=== PATIENT | male | born 1990 | race Caucasian/White ===

== ENCOUNTER 2017-02-25 11:24 | Emergency (ER) | payer MEDICAID ==
[2017-02-25 11:38] VITALS: TEMP 97.5
[2017-02-25] MEDS ORDERED: NS 1,000 ML IV ONE (11:52)
[2017-02-25] MEDS ORDERED: LORazepam 2 MG/ML INJ IVP ONE (11:59)
[2017-02-25] MEDS ORDERED: KETOROLAC 30 MG/1 ML SDV IVP ONE (11:59)
--- NOTE | 2017-02-25 12:00 | EDPHY ---
H & P Stated Complaint: l flank plain/dysuria/ penis is sore Time Seen by Provider: 02/25/17 11:54 HPI/ROS: CHIEF COMPLAINT: Left flank pain HISTORY OF PRESENT ILLNESS: 26-year-old male complaining of acute left flank pain, described as sharp stabbing, intermittent for the past this 24 hours. No nausea or vomiting. States that he believed urinated a small pebble. No trauma. No testicle pain. No dysuria no hematuria increased frequency.Atraumatic. No urinary complaints REVIEW OF SYSTEMS: A ten point review of systems was performed and is negative with the exception of the items mentioned in the HPI PAST MEDICAL & SURGICAL HISTORY: No pertinent medical or surgical history SOCIAL HISTORY: on methadone therapy PHYSICAL EXAM (Prior to examination, patient consented to physical exam, hands were washed and my usual and customary physical exam procedures followed) 1) GENERAL: Well-developed, well-nourished, alert and oriented. Appears uncomfortable. 2) HEAD: Normocephalic, atraumatic 3) HEENT: Pupils equal, round, reactive to light bilaterally. Sclera anicteric. 4) NECK: Full range of motion, no meningeal signs. 5) LUNGS: Clear auscultation bilaterally, no wheezes, no rhonchi, no retractions. 6) HEART: Regular rate and rhythm, no murmur, no heave, no gallop. 7) ABDOMEN: No guarding, no rebound, no focal tenderness, negative McBurney's, negative Paez's, negative Rovsing's, negative peritoneal sign, 8) MUSCULOSKELETAL: Moving all extremities, no focal areas of tenderness, no obvious trauma. No peripheral edema or discoloration. 9) BACK: No CVA tenderness, no midline vertebral tenderness, no fluctuance, no step-off, no obvious trauma, no visual or palpable abnormality. 10) SKIN: No rash, no petechiae. 11) : Normal male external genitalia bilateral testicles nontender nonswollen , cremasteric reflex present, no urethral discharge, no signs of infection or Power's gangrene . 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 PSH: hernia, femur, elbowm throat - Social History Smoking Status: Current every day smoker Constitutional: Initial Vital Signs Temperature (C) 36.4 C 02/25/17 11:36 Heart Rate 73 02/25/17 11:36 Respiratory Rate 18 02/25/17 11:36 Blood Pressure 116/77 02/25/17 11:36 O2 Sat (%) 95 02/25/17 11:36 O2 Delivery Mode Room Air Allergies/Adverse Reactions: No Known Allergies Allergy (Verified 02/25/17 11:35) Home Medications: Medication Instructions Recorded NK [No Known Home Meds] 02/25/17 Medical Decision Making ED Course/Re-evaluation: 1:37 pm: Revaluation, sleeping, appears comfortable. 1:49 pm: Patient, sleeping, easily woken, states that he is pain free. Re- examined. Resting comfortably. Discussed his imaging results. I think the patient can be discharged home. We discussed possibility of a passed kidney stone. Doubt acute surgical abdominal pathology. Doubt acute genitalia surgical pathology. Plan will be discharge home. Care and management in consultation with secondary supervising physician Dr Plasencia - Data Points Laboratory Results: Laboratory Results 02/25/17 12:00 02/25/17 12:00 02/25/17 02/25/17 02/25/17 12:00 12:00 12:00 WBC 5.26 10^3/uL 10^3/uL (3.80-9.50) RBC 5.35 10^6/uL 10^6/uL (4.40-6.38) Hgb 15.2 g/dL g/dL (13.7-17.5) Hct 44.7 % % (40.0-51.0) MCV 83.6 fL fL (81.5-99.8) MCH 28.4 pg pg (27.9-34.1) MCHC 34.0 g/dL g/dL (32.4-36.7) RDW 12.9 % % (11.5-15.2) Plt Count 253 10^3/uL 10^3/uL (150-400) MPV 8.7 fL fL (8.7-11.7) Neut % (Auto) 47.7 % % (39.3-74.2) Lymph % (Auto) 43.3 % % (15.0-45.0) [place] % (Auto) 7.4 % % (4.5-13.0) Eos % (Auto) 1.0 % % (0.6-7.6) Baso % (Auto) 0.4 % % (0.3-1.7) Nucleat RBC Rel Count 0.0 % % (0.0-0.2) Absolute Neuts (auto) 2.51 10^3/uL 10^3/uL (1.70-6.50) Absolute Lymphs (auto) 2.28 10^3/uL 10^3/uL (1.00-3.00) Absolute Monos (auto) 0.39 10^3/uL 10^3/uL (0.30-0.80) Absolute Eos (auto) 0.05 10^3/uL 10^3/uL (0.03-0.40) Absolute Basos (auto) 0.02 10^3/uL 10^3/uL (0.02-0.10) Absolute Nucleated RBC 0.00 10^3/uL 10^3/uL (0-0.01) Immature Gran % 0.2 % % (0.0-1.1) Immature Gran # 0.01 10^3/uL 10^3/uL (0.00-0.10) Sodium 141 mEq/L mEq/L (134-144) Potassium 4.2 mEq/L mEq/L (3.5-5.2) Chloride 103 mEq/L mEq/L (97-110) Carbon Dioxide 27 mEq/l mEq/l (22-31) Anion Gap 11 mEq/L mEq/L (8-16) BUN 12 mg/dL mg/dL (7-23) Creatinine 0.9 mg/dL mg/dL (0.7-1.3) Estimated GFR > 60 Glucose 77 mg/dL mg/dL (70-100) Calcium 9.6 mg/dL mg/dL (8.5-10.4) Total Bilirubin 0.7 mg/dL mg/dL (0.1-1.4) Conjugated Bilirubin 0.4 mg/dL mg/dL (0.0-0.5) Unconjugated Bilirubin 0.3 mg/dL mg/dL (0.0-1.1) AST 18 IU/L IU/L (17-59) ALT 26 IU/L IU/L (21-72) Alkaline Phosphatase 69 IU/L IU/L (38-126) Total Protein 7.4 g/dL g/dL (6.3-8.2) Albumin 4.6 g/dL g/dL (3.5-5.0) Lipase 58.0 IU/L IU/L (23-300) Urine Color YELLOW Urine Appearance CLEAR Urine pH 5.0 (5.0-7.5) Ur Specific [place] 1.011 (1.002-1.030) Urine Protein NEGATIVE (NEGATIVE) Urine Ketones NEGATIVE (NEGATIVE) Urine Blood NEGATIVE (NEGATIVE) Urine Nitrate NEGATIVE (NEGATIVE) Urine Bilirubin NEGATIVE (NEGATIVE) Urine Urobilinogen NEGATIVE EU EU (0.2-1.0) Ur Leukocyte Esterase NEGATIVE (NEGATIVE) Urine RBC 5-10 /hpf H /hpf (0-3) Urine WBC 1-3 /hpf /hpf (0-3) Ur Epithelial Cells TRACE /lpf /lpf (NONE-1+) Urine Glucose NEGATIVE (NEGATIVE) Medications Given: Discontinued Medications Sodium Chloride (Ns) 1,000 mls @ 0 mls/hr IV ONCE ONE PRN Reason: Wide Open Stop: 02/25/17 11:53 Last Admin: 02/25/17 12:28 Dose: 1,000 mls Ketorolac Tromethamine (Toradol) 30 mg IVP EDNOW ONE Stop: 02/25/17 12:00 Last Admin: 02/25/17 12:26 Dose: 30 mg Lorazepam (Ativan Injection) 1 mg IVP EDNOW ONE Stop: 02/25/17 12:00 Last Admin: 02/25/17 12:26 Dose: 1 mg Departure - Departure Disposition: Home, Routine, Self-Care Clinical Impression: Flank pain Condition: Good Instructions: Flank Pain (ED) Additional Instructions: Return to the ER if you develop new or worsening symptoms, if you develop testicle pain, or any other symptoms concern you. Referrals: Irving Bateman MD [Medical Doctor] - 2-3 days without fail (Dr Bateman is a urologist)
[2017-02-25 12:10] LABS: % IMMATURE GRANULYOCYTES 0.2 % (0.0-1.1); ABSOLUTE IMMATURE GRANULOCYTES 0.01 10^3/uL (0.00-0.10); ADD DIFF? NO; ADD MORPH? NO; ADD SCAN? NO; ATYPICAL LYMPHOCYTE FLAG 20 (0-99); FRAGMENT RBC FLAG 0 (0-99); HEMATOCRIT 44.7 % (40.0-51.0); HEMOGLOBIN 15.2 g/dL (13.7-17.5); LEFT SHIFT FLG 0 (0-99); LIPEMIA HEMOLYSIS FLAG 90 (0-99); MEAN CELL HEMOGLOBIN 28.4 pg (27.9-34.1); MEAN CELL VOLUME 83.6 fL (81.5-99.8); MEAN PLATELET VOLUME 8.7 fL (8.7-11.7); PLATELET CLUMPS FLAG 0 (0-99); PLATELET COUNT 253 10^3/uL (150-400); RED BLOOD CELL COUNT 5.35 10^6/uL (4.40-6.38); RED CELL DISTRIBUTION WIDTH 12.9 % (11.5-15.2)
[2017-02-25 12:17] LABS: COLOR YELLOW; LEUKOCYTE ESTERASE,URINE NEGATIVE (NEGATIVE); NITRITE,URINE NEGATIVE (NEGATIVE)
[2017-02-25 12:30] LABS: ALANINE AMINOTRANSFERASE 26 IU/L (21-72); ALBUMIN 4.6 g/dL (3.5-5.0); ALKALINE PHOSPHATASE 69 IU/L (38-126); ANION GAP 11 mEq/L (8-16); ASPARTATE AMINOTRANSFERASE 18 IU/L (17-59); BILIRUBIN,TOTAL 0.7 mg/dL (0.1-1.4); BILIRUBIN-CONJUGATED 0.4 mg/dL (0.0-0.5); BILIRUBIN-UNCONJUGATED 0.3 mg/dL (0.0-1.1); CALCIUM 9.6 mg/dL (8.5-10.4); CARBON DIOXIDE 27 mEq/l (22-31); CHLORIDE 103 mEq/L (97-110); CREATININE 0.9 mg/dL (0.7-1.3); GLOMERULAR FILTRATION RATE > 60; GLUCOSE 77 mg/dL (70-100); POTASSIUM 4.2 mEq/L (3.5-5.2); SODIUM 141 mEq/L (134-144); TOTAL PROTEIN 7.4 g/dL (6.3-8.2)
[2017-02-25 14:06] VITALS: BP 98/50; PULSE 64; RESP 14; O2SAT 97
== END 2017-02-25 14:05 | disposition home or self-care (01) ==
DX: R10.9 Unspecified abdominal pain (principal); F17.200 Nicotine dependence, unspecified, uncomplicated
CPT/HCPCS: 96374; J1885; J2060

== ENCOUNTER 2017-03-01 00:09 | Inpatient (IN) | payer MEDICAID ==
[2017-03-01 00:45] LABS: % IMMATURE GRANULYOCYTES 0.4 % (0.0-1.1); ABSOLUTE IMMATURE GRANULOCYTES 0.02 10^3/uL (0.00-0.10); ADD DIFF? NO; ADD MORPH? NO; ADD SCAN? NO; ATYPICAL LYMPHOCYTE FLAG 40 (0-99); FRAGMENT RBC FLAG 0 (0-99); HEMATOCRIT 44.8 % (40.0-51.0); HEMOGLOBIN 15.2 g/dL (13.7-17.5); LEFT SHIFT FLG 0 (0-99); LIPEMIA HEMOLYSIS FLAG 90 (0-99); MEAN CELL HEMOGLOBIN 27.8 pg (27.9-34.1); MEAN CELL HEMOGLOBIN CONCENTR. 33.9 g/dL (32.4-36.7); MEAN CELL VOLUME 81.9 fL (81.5-99.8); MEAN PLATELET VOLUME 8.5 fL (8.7-11.7); PLATELET CLUMPS FLAG 10 (0-99); PLATELET COUNT 246 10^3/uL (150-400); RED BLOOD CELL COUNT 5.47 10^6/uL (4.40-6.38); RED CELL DISTRIBUTION WIDTH 12.8 % (11.5-15.2)
[2017-03-01 01:04] LABS: ANION GAP 13 mEq/L (8-16); CALCIUM 9.6 mg/dL (8.5-10.4); CARBON DIOXIDE 28 mEq/l (22-31); CHLORIDE 105 mEq/L (97-110); ETHANOL SERUM < 10 mg/dL (0-10); GLOMERULAR FILTRATION RATE > 60; GLUCOSE 78 mg/dL (70-100); POTASSIUM 3.9 mEq/L (3.5-5.2); SODIUM 146 mEq/L (134-144)
--- NOTE | 2017-03-01 02:31 | EDPHY ---
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 PSH: hernia, femur, elbowm throat - Social History Smoking Status: Current every day smoker Time Seen by Provider: 03/01/17 01:23 HPI/ROS: Chief Complaint: Hallucinations HPI: 26-year-old male has been having increasingly worsening visual and auditory hallucinations. Patient states he has been hallucinations for several years but has been getting increasingly worse. He is feeling paranoid. He was seen at [facility] and placed on a hold and sent for medical clearance. Patient states he has used cocaine in the past but has not used for 2 weeks. Symptoms been getting worse the last 2 weeks. Has not been seen for these in the past. Denies any other drug use. No alcohol. Is not feeling actively suicidal at this time. Patient is complaining of some mild testicular pain at this time. This has been present for the last for 5 days. Denies trauma. No fevers or chills. ROS: 10 point Review of Systems is negative except as noted in the HPI. PMH: None Medications: None Allergies no known drug allergies Social History: No smoking, occasional alcohol, occasional cocaine Family History: non-contributory Physical Exam: Gen: Awake, Alert, No Distress HEENT: Nose: no rhinorrhea Eyes: PERRLA, EOMI Mouth: Moist mucosa Neck: Supple, no JVD Chest: nontender, lungs clear to auscultation Heart: S1, S2 normal, no murmur Abd: Soft, non-tender, no guarding Genital exam: He has normal testicular lie. There is no erythema, there is no swelling, is normal cremasteric, mild bilateral testicular tenderness, no genital lesions Back: no CVA tenderness, no midline tenderness Ext: no edema, non-tender Skin: no rash Neuro: CN II-XII intact, Sensation grossly intact, Strength 5/5 in bilateral upper and lower extremities (Salomón Norris) Constitutional: Initial Vital Signs Temperature (C) 36.8 C 03/01/17 00:10 Heart Rate 78 03/01/17 00:10 Respiratory Rate 18 03/01/17 00:10 Blood Pressure 136/93 H 03/01/17 00:10 O2 Sat (%) 98 03/01/17 00:10 O2 Delivery Mode Room Air O2 (L/minute) 95 Allergies/Adverse Reactions: strawberry Allergy (Verified 03/01/17 00:40) clorox Allergy (Uncoded 03/01/17 00:40) Home Medications: Medication Instructions Recorded Methadone HCl 03/01/17 Medical Decision Making ED Course/Re-evaluation: 2328: Patient signed over to Dr. Miles at 11:00 p.m. shift change. Patient M1 hold still pending placement. (Minesh Jane) Patient here for medical clearance. He has some mild testicular discomfort but a normal exam. No evidence of acute infectious process at this time or torsion. Patient's U tox is negative. He he is medically cleared at this time. Patient is agitated and hallucinating. He is pending placement. Given Zyprexa 10 mg p.o. 0700 patient is improved and resting. No further issues. Patient is signed out to Dr. South pending placement. 2300 Care reassumed by me from Dr Jane pending placement. [address] Plasencia pending placement. No issues with this patient during my care overnight. (Salomón Norris) Other Provider: I assumed care of the patient at 0700 awaiting psychiatric placement The patient is turned over to Dr. Jane at 3pm pending psychiatric placement. (Saroj South) - Data Points Laboratory Results: Laboratory Results 03/01/17 00:30 03/01/17 00:30 Medications Given: Discontinued Medications Lorazepam (Ativan) 1 mg PO EDNOW ONE Stop: 03/02/17 00:46 Last Admin: 03/02/17 00:45 Dose: 1 mg Methadone HCl (Methadone Hcl) 40 mg PO EDNOW ONE Stop: 03/01/17 18:31 Last Admin: 03/01/17 18:38 Dose: 40 mg Olanzapine (Olanzapine) 10 mg PO EDNOW ONE Stop: 03/01/17 04:51 Last Admin: 03/01/17 04:57 Dose: 10 mg Departure - Departure Disposition: Other Psych, Not [facility] Clinical Impression: Acute psychosis Condition: Fair Referrals: Perla Duran [Primary Care Provider] - As per Instructions
[2017-03-01] MEDS ORDERED: OLANZapine 10 MG TAB PO ONE (04:50)
[2017-03-01] MEDS ORDERED: OLANZapine 5 MG TAB ONE (04:53)
[2017-03-01] MEDS ORDERED: IBUPROFEN 600 MG TAB PO ONE (05:09)
[2017-03-01 05:39] LABS: COLOR YELLOW; LEUKOCYTE ESTERASE,URINE NEGATIVE (NEGATIVE); NITRITE,URINE NEGATIVE (NEGATIVE)
[2017-03-01] MEDS ORDERED: METHADONE HCL 1 MG/ML SYR PO ONE (18:14)
[2017-03-01] MEDS ORDERED: METHADONE HCL 10 MG TAB PO ONE (18:30)
[2017-03-02] MEDS ORDERED: LORazepam 1 MG TAB ONE (00:44)
[2017-03-02] MEDS ORDERED: LORazepam 1 MG TAB PO ONE (00:45)
[2017-03-02] MEDS ORDERED: METHADONE HCL 5 MG TAB PO ONE (08:17)
[2017-03-02] MEDS ORDERED: METHADONE HCL 10 MG/ML 1000 ML BULK BOTTLE PO ONE (08:45)
[2017-03-02] MEDS ORDERED: IBUPROFEN 200 MG TAB PO ONE (10:51)
[2017-03-02] MEDS ORDERED: NICOTINE 21 MG/24 HR PATCH TD ONE ×2 (11:55→12:08)
[2017-03-02] MEDS ORDERED: MAGNESIUM HYDROXIDE 30 ML UDCUP PO PRN (17:41)
[2017-03-02] MEDS ORDERED: MAG HYDROX/AL HYDROX/SIMETH 30 ML UDCUP PO PRN (17:41)
[2017-03-02] MEDS: NICOTINE POLACRILEX 2 MG GUM B PRN ×3 (18:06→22:15)
[2017-03-02] MEDS: LORazepam 0.5 MG TAB PO PRN ×2 (18:06→22:05)
[2017-03-03] MEDS: NICOTINE POLACRILEX 2 MG GUM B PRN ×9 (00:43→23:27)
[2017-03-03] MEDS: LORazepam 0.5 MG TAB PO PRN ×5 (02:05→20:45)
[2017-03-03] MEDS ORDERED: METHADONE HCL 1 MG/ML 500ML BULK BOTTLE PO SCH ×2 (06:00→09:00)
[2017-03-03] MEDS: Lisdexamfetamine Dimesylate [Vyvanse] 60 MG PO SCH (09:25)
[2017-03-03] MEDS: CEPACOL LOZENGE PO PRN ×2 (12:11→13:11)
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
[2017-03-03] MEDS: NICOTINE 21 MG/24 HR PATCH TD SCH (16:35)
[2017-03-03] MEDS: ACETAMINOPHEN 325 MG TAB PO PRN (17:43)
[2017-03-03] MEDS ORDERED: risperiDONE 1 MG TAB PO SCH (22:15)
[2017-03-04] MEDS: NICOTINE POLACRILEX 2 MG GUM B PRN ×2 (00:37→23:36)
[2017-03-04] MEDS: LORazepam 0.5 MG TAB PO PRN ×5 (00:37→21:58)
[2017-03-04] MEDS: METHADONE HCL 10 MG/ML 1000 ML BULK BOTTLE PO SCH (05:12)
[2017-03-04] MEDS: NICOTINE 21 MG/24 HR PATCH TD SCH (09:09)
--- NOTE | 2017-03-04 13:15 | SOAPPROG ---
SOAP Progress Note Assessment/Plan: Assessment: Plan: 03/04/17 13:16 Remains quite psychotic. Will increase Risperdal to BID, monitor. Subjective: Pt seen, discussed with staff. Lying in bed in position, tearful. States he is afraid. Worried that "everyone is talking about me." Remains isolative and guarded, though pleasant and interactive. Remains hypervigilant, suddenly spinning around to look around room as if startled by a sound, though room is quiet. He gets out of bed and walks over to the curtains, jerking them open as if to surprise someone hiding behind them. He received Risperdal last night without complication. AGrees to increase to BID today. Agreeable to remain in hospital until the fears and halluc's are improved. Objective: Vital Signs Temp Pulse Resp BP Pulse Ox 36.4 C 107 H 16 136/74 H 97 03/03/17 04:48 03/04/17 00:02 03/04/17 00:02 03/04/17 00:02 03/04/17 00:02 MSE: Agitated, guarded, hypervigilant. Affect is constricted, anxious, tearful. Mood is "not too good." Apologizes frequently "for being so crazy and looking stupid." TP is generally linear. TC reveals paranoia and IOR's. - Time Spent With Patient Time Spent With Patient: 25" - Pending Discharge Pending Discharge Within 24 Hours: No Pending Discharge Within 48 Hours: No ICD10 Worksheet Patient Problems: Problems Problem Status Onset Acute psychosis Acute
[2017-03-04] MEDS: risperiDONE 1 MG TAB PO SCH (21:48)
[2017-03-05] MEDS: NICOTINE POLACRILEX 2 MG GUM B PRN ×3 (01:12→22:52)
[2017-03-05] MEDS: METHADONE HCL 10 MG/ML 1000 ML BULK BOTTLE PO SCH (05:25)
[2017-03-05] MEDS: Lisdexamfetamine Dimesylate [Vyvanse] 60 MG PO SCH (09:43)
[2017-03-05] MEDS: risperiDONE 1 MG TAB PO SCH ×2 (09:43→20:58)
[2017-03-05] MEDS: OLANZapine DISINTEGR 10 MG TAB PO PRN (09:43)
[2017-03-05] MEDS: LORazepam 0.5 MG TAB PO PRN ×3 (09:43→21:36)
[2017-03-05] MEDS: NICOTINE 21 MG/24 HR PATCH TD SCH (09:43)
--- NOTE | 2017-03-05 23:16 | SOAPPROG ---
SOAP Progress Note Assessment/Plan: Assessment: 26yo CM w/hx polysubst use incl cocaine, THC, meth, with progressive psychosis over 3 months. 03/05/17 17:47 per staff, slept 2.5hr. primarily stays in room with blanket covering him including head. still with panic episodes and seeing "sadow people". Recent start of Risperdal, increased to 1mg bid. Denied any med s/e. refuses any prn zyprexa. wondering if Methadone is actual dose and actually methadone b/c "tastes like cough medicine" and wondering if he feels not well b/c withdrawing. no objective sxs of opiate w/d and reassured pt is getting outpt dose of 47mg. used to be on 80mg in the past but not recently, and inconsistently attends methadone clinic due to transportation issues. can't miss too much b/c will be terminated from methadone clinic. 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 Thinks risperdal helping decr VH and Ah. still present at times. feels better "able to track" cognitively. overall feels "having a more positive outlook" than on admission, "my thoughts are more defined", feeling "less hopeless" and has gotten "more sleep" which [facility]. perhaps slept 4-5hr he thinks. States he is 3 weeks clean from THC and cocaine soon, "I'll never use again". Asks for discharge b/c "I have a plan to get a job today." No specifics. Expressed concerns for his wanting to d/c without f/u in place, still with psychotic sxs, only recently started new med with dose increase today. Concerns for craving but pt denies. Pt agreed to talk with primary team during week and continue to engage in treatment over weekend. MSE: calm, cooperative, sitting in room w/good eye contact, nml rate/vol speech but hoarse voice he states is chronic and he used to get teased about this when younger. 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 denied any si/hi or current ah/vh although admits still +VH/AH come and go but less. mood "better", affect restricted. i/j fair/limited. cognition conversationally intact. Plan: continue Risperdal 1mg bid cont Methadone 47mg qd vol. seems slowly improving but not stable for d/c yet Objective: Vital Signs Temp Pulse Resp BP Pulse Ox 36.7 C 106 H 12 146/87 H 96 03/05/17 06:00 03/05/17 06:00 03/05/17 06:00 03/05/17 06:00 03/05/17 06:00 - Time Spent With Patient Time Spent With Patient: 35min - Pending Discharge Pending Discharge Within 24 Hours: No Pending Discharge Within 48 Hours: No ICD10 Worksheet Patient Problems: Problems Problem Status Onset Acute psychosis Acute
[2017-03-06] MEDS: Lisdexamfetamine Dimesylate [Vyvanse] 60 MG PO SCH (08:05)
[2017-03-06] MEDS: METHADONE HCL 10 MG/ML 1000 ML BULK BOTTLE PO SCH (08:05)
[2017-03-06] MEDS: NICOTINE 21 MG/24 HR PATCH TD SCH (08:50)
[2017-03-06] MEDS: risperiDONE 1 MG TAB PO SCH (08:50)
[2017-03-06] MEDS: LORazepam 0.5 MG TAB PO PRN ×3 (14:47→22:09)
[2017-03-06] MEDS: NICOTINE POLACRILEX 2 MG GUM B PRN ×2 (18:18→23:17)
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
[2017-03-06] MEDS ORDERED: RISPERIDONE ODT 0.5 MG TAB SL PRN (18:20)
[2017-03-06] MEDS: RISPERIDONE 2 MG ODT TAB SL SCH (22:09)
[2017-03-07] MEDS: OLANZapine DISINTEGR 10 MG TAB PO PRN (00:46)
[2017-03-07] MEDS: NICOTINE POLACRILEX 2 MG GUM B PRN ×3 (02:15→20:54)
[2017-03-07] MEDS: METHADONE HCL 10 MG/ML 1000 ML BULK BOTTLE PO SCH (06:00)
[2017-03-07] MEDS: NICOTINE 21 MG/24 HR PATCH TD SCH (08:32)
[2017-03-07] MEDS: ACETAMINOPHEN 325 MG TAB PO PRN ×2 (12:35→17:07)
[2017-03-07] MEDS: LORazepam 0.5 MG TAB PO PRN ×2 (13:02→17:07)
--- NOTE | 2017-03-07 15:58 | SOAPPROG ---
SOAP Progress Note Assessment/Plan: Assessment: Plan: 03/04/17 13:16 Remains quite psychotic. Will increase Risperdal to BID, monitor. 03/07/17 15:58 Remains psychotic. Will CCM, monitor. Subjective: Pt seen, discussed with staff. Reports having a good weekend though staff note that he remained isolative and paranoid. He was noted to be hiding under his covers frequently. He acknowledges this and states that he is afraid of the other patients as he believes they are talking and laughing about him. He continues to see "shadow people." He states they may be less frequent, but he is constantly attending to them during our interview. Objective: Vital Signs Temp Pulse Resp BP Pulse Ox 36.7 C 96 16 122/87 H 95 03/07/17 06:00 03/07/17 06:00 03/07/17 06:00 03/07/17 06:00 03/07/17 06:00 MSE: Moderately agitated, coop. Affect is constricted, anxious. TP is generally linear. TC reveals paranoia, IOR's, A/V halluc's. - Time Spent With Patient Time Spent With Patient: 25" - Pending Discharge Pending Discharge Within 24 Hours: No Pending Discharge Within 48 Hours: No ICD10 Worksheet Patient Problems: Problems Problem Status Onset Acute psychosis Acute
[2017-03-07] MEDS: RISPERIDONE 2 MG ODT TAB SL SCH (20:54)
[2017-03-08] MEDS: NICOTINE POLACRILEX 2 MG GUM B PRN ×5 (02:39→20:33)
[2017-03-08] MEDS: METHADONE HCL 10 MG/ML 1000 ML BULK BOTTLE PO SCH (06:00)
[2017-03-08] MEDS: LORazepam 0.5 MG TAB PO PRN ×4 (06:41→20:32)
[2017-03-08] MEDS: NICOTINE 21 MG/24 HR PATCH TD SCH (08:17)
--- NOTE | 2017-03-08 17:40 | SOAPPROG ---
SOAP Progress Note Assessment/Plan: Assessment: Plan: 03/04/17 13:16 Remains quite psychotic. Will increase Risperdal to BID, monitor. 03/07/17 15:58 Remains psychotic. Will CCM, monitor. 03/08/17 17:40 Psychosis is slowly improving. Will titrate Risperdal, monitor. Subjective: Pt seen, discussed with staff. Reports feeling "kind of weird." Remains paranoid, hypervigilant. Sitting in his room with no light on working on his safety plan. Continues to report A/V hallucinations, paranoia that others are talking about him. Compliant with meds. Objective: Vital Signs Temp Pulse Resp BP Pulse Ox 36.5 C 94 12 117/76 96 03/08/17 06:00 03/08/17 06:00 03/08/17 06:00 03/08/17 06:00 03/08/17 06:00 MSE: Moderately anxious, guarded, coop. Affect is constricted, stable. Mood is "OK." TP generally linear with some blocking at times. TC reveals continued A/V halluc's, paranoia, IOR's, RIS. - Time Spent With Patient Time Spent With Patient: 15" - Pending Discharge Pending Discharge Within 24 Hours: No Pending Discharge Within 48 Hours: No ICD10 Worksheet Patient Problems: Problems Problem Status Onset Acute psychosis Acute
[2017-03-08] MEDS: RISPERIDONE 2 MG ODT TAB SL SCH (20:32)
[2017-03-09] MEDS: NICOTINE POLACRILEX 2 MG GUM B PRN ×6 (00:17→23:42)
[2017-03-09] MEDS: LORazepam 0.5 MG TAB PO PRN ×5 (00:52→22:56)
[2017-03-09] MEDS: METHADONE HCL 10 MG/ML 1000 ML BULK BOTTLE PO SCH (05:25)
[2017-03-09] MEDS: NICOTINE 21 MG/24 HR PATCH TD SCH (09:25)
[2017-03-09] MEDS: ACETAMINOPHEN 325 MG TAB PO PRN (10:42)
--- NOTE | 2017-03-09 19:06 | SOAPPROG ---
SOAP Progress Note Assessment/Plan: Assessment: Plan: 03/04/17 13:16 Remains quite psychotic. Will increase Risperdal to BID, monitor. 03/07/17 15:58 Remains psychotic. Will CCM, monitor. 03/08/17 17:40 Psychosis is slowly improving. Will titrate Risperdal, monitor. 03/09/17 19:06 Improving. CCM. Subjective: Pt seen, discussed with staff. Reports feeling "pretty bad." States his testicle hurts and may have kept him from sleeping last night. He states, "It only hurts sometimes" and that he doesn't need to see the doctor. Agrees to allow me to discuss it with Dr. Acosta. Compliant with Risperdal. Paranoia is much better, participating in groups now. Less worried about what others are saying about him. A/V halluc's are "much better" though continue. He states, "They are like they're far away now, not right in my face." Objective: Vital Signs Temp Pulse Resp BP Pulse Ox 37.4 C 119 H 16 129/84 H 94 03/09/17 03:29 03/09/17 03:29 03/09/17 03:29 03/09/17 03:29 03/09/17 03:29 MSE: Calmer, less hypervigilant. Affect is constricted, dysphoric. Mood is "better." TP linear, though derails at times, likely due to internal processes. - Time Spent With Patient Time Spent With Patient: 25" - Pending Discharge Pending Discharge Within 24 Hours: No Pending Discharge Within 48 Hours: No ICD10 Worksheet Patient Problems: Problems Problem Status Onset Acute psychosis Acute
[2017-03-09] MEDS: RISPERIDONE 2 MG ODT TAB SL SCH (19:43)
[2017-03-09] MEDS: OLANZapine DISINTEGR 10 MG TAB PO PRN (23:49)
[2017-03-10] MEDS: NICOTINE POLACRILEX 2 MG GUM B PRN ×5 (00:47→21:49)
[2017-03-10] MEDS: METHADONE HCL 10 MG/ML 1000 ML BULK BOTTLE PO SCH (06:39)
[2017-03-10] MEDS: LORazepam 0.5 MG TAB PO PRN ×4 (08:53→23:03)
[2017-03-10] MEDS: NICOTINE 21 MG/24 HR PATCH TD SCH (08:54)
--- NOTE | 2017-03-10 15:16 | SOAPPROG ---
SOAP Progress Note Assessment/Plan: Assessment: Plan: 03/04/17 13:16 Remains quite psychotic. Will increase Risperdal to BID, monitor. 03/07/17 15:58 Remains psychotic. Will CCM, monitor. 03/08/17 17:40 Psychosis is slowly improving. Will titrate Risperdal, monitor. 03/09/17 19:06 Improving. CCM. 03/10/17 15:16 Continued improvement. CCM. Likely d/c tomorrow if all is well. Subjective: Pt seen, discussed with staff. Reports feeling "a lot better." Brighter, less paranoid, more interactive. Attended groups today. States the shadow people are much less bothersome and the voices have almost completely resolved. Able to talk to his father without any problems and is relieved by this. Plans to get an apartment with his F's help and is pleased by this. Objective: Vital Signs Temp Pulse Resp BP Pulse Ox 37.1 C 103 H 12 122/84 H 93 03/10/17 00:00 03/10/17 00:00 03/10/17 00:00 03/10/17 00:00 03/10/17 00:00 MSE; Calm, coop. Much less guarded and hypervigilant. Affect is calmer, stable. Mood is "good." TP linear. TC reveals continued A/V halluc's, but much less prominent and intrusive. Denies current SI. - Time Spent With Patient Time Spent With Patient: 15" - Pending Discharge Pending Discharge Within 24 Hours: No Pending Discharge Within 48 Hours: No ICD10 Worksheet Patient Problems: Problems Problem Status Onset Acute psychosis Acute
[2017-03-10] MEDS: RISPERIDONE 2 MG ODT TAB SL SCH (19:20)
[2017-03-10] MEDS: OLANZapine DISINTEGR 10 MG TAB PO PRN (20:34)
[2017-03-11] MEDS: NICOTINE POLACRILEX 2 MG GUM B PRN (01:13)
[2017-03-11 03:05] VITALS: BP 136/79; PULSE 89; RESP 14; TEMP 97.5; O2SAT 94
[2017-03-11] MEDS: METHADONE HCL 10 MG/ML 1000 ML BULK BOTTLE PO SCH (05:07)
[2017-03-11] MEDS: LORazepam 0.5 MG TAB PO PRN ×2 (08:23→13:46)
[2017-03-11] MEDS: NICOTINE 21 MG/24 HR PATCH TD SCH (08:23)
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
== END 2017-03-11 14:20 | disposition home or self-care (01) | DRG 885 ==
LOC: EDUNIT# → BBEH 03-02 15:52
PROVIDERS: ADMIT Psychiatry & Neurology Psychiatry; ATTEND Psychiatry & Neurology Psychiatry
DX: F29 Unspecified psychosis not due to a substance or known physiological condition (principal); N50.819 Testicular pain, unspecified; R49.0 Dysphonia; F43.10 Post-traumatic stress disorder, unspecified; F14.90 Cocaine use, unspecified, uncomplicated; F11.90 Opioid use, unspecified, uncomplicated; F12.90 Cannabis use, unspecified, uncomplicated; F17.210 Nicotine dependence, cigarettes, uncomplicated; Z56.0 Unemployment, unspecified; Z85.72 Personal history of non-Hodgkin lymphomas; Z59.0 Homelessness
CPT/HCPCS: 80305; G0480

== ENCOUNTER 2018-01-05 15:49 | Emergency (ER) | payer MEDICAID ==
[2018-01-05 15:57] VITALS: TEMP 98.1
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
[2018-01-05] MEDS ORDERED: ONDANSETRON 4 MG/2 ML VIAL IVP ONE (17:04)
[2018-01-05] MEDS ORDERED: KETOROLAC 30 MG/1 ML SDV IVP ONE (17:04)
[2018-01-05] MEDS ORDERED: NS 1,000 ML IV ONE (17:04)
[2018-01-05 17:12] LABS: PLATELET COUNT 244 10^3/uL (150-400)
[2018-01-05] MEDS ORDERED: GABAPENTIN 300 MG CAP PO ONE (18:21)
[2018-01-05] MEDS ORDERED: DEXAMETHASONE 4 MG/ML VIAL IVP ONE (18:21)
[2018-01-05] MEDS ORDERED: DIAZEPAM 5 MG/ML 1 ML SYR IVP ONE (18:21)
[2018-01-05] MEDS ORDERED: LIDOCAINE 4%/MENTHOL 1% PATCH TD ONE ×2 (18:21→18:22)
[2018-01-05 20:02] VITALS: BP 119/66; PULSE 54; RESP 18; O2SAT 99
[2018-01-05] MEDS ORDERED: PATCH REMOVAL 1 EA PATCH TD SCH (21:00)
== END 2018-01-05 20:10 | disposition home or self-care (01) ==
DX: M54.9 Dorsalgia, unspecified (principal); R10.9 Unspecified abdominal pain; E86.9 Volume depletion, unspecified
CPT/HCPCS: 96374; J1100; J1885; J2405; J3360

== ENCOUNTER 2018-03-20 19:56 | Emergency (ER) | payer MEDICAID ==
--- NOTE | 2018-03-20 20:06 | EDPHY ---
H & P Stated Complaint: c/o R sided testicular pain x 2 weeks, seen for same recently Time Seen by Provider: 03/20/18 20:05 HPI/ROS: CHIEF COMPLAINT: Right testicular pain HISTORY OF PRESENT ILLNESS: The patient presents the ED with a 2 week history of right testicular pain. The patient complains of severe pain. He reportedly was seen at [facility] for this condition 2 weeks ago. The patient was admitted at that point time. He had an extensive workup with [address] scan which demonstrated no pathology. The patient was treated for epididymitis. The patient does have a history of homelessness and substance abuse. REVIEW OF SYSTEMS: A comprehensive 10 point review of systems is otherwise negative aside from elements mentioned in the history of present illness. 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 PSH: hernia, femur, elbowm throat - Social History Smoking Status: Former smoker - Physical Exam Exam: General Appearance: Alert, uncomfortable secondary to pain Eyes: Pupils equal and round no pallor or injection ENT, Mouth: Mucous membranes moist Respiratory: There are no retractions, lungs are clear to auscultation Cardiovascular: Regular rate and rhythm Gastrointestinal: Abdomen is soft and nontender, no masses, bowel sounds normal Genitourinary exam: Normal testicular lie, right testicular tenderness, no scrotal erythema Neurological: 5/5 strength all 4 extremities Skin: Warm and dry, no rashes Musculoskeletal: Neck is supple nontender Extremities: symmetrical, full range of motion Constitutional: Initial Vital Signs Temperature (C) 36.4 C 03/20/18 19:59 Heart Rate 74 03/20/18 19:59 Respiratory Rate 16 03/20/18 19:59 Blood Pressure 106/87 H 03/20/18 19:59 O2 Sat (%) 96 03/20/18 19:59 O2 Delivery Mode Room Air Allergies/Adverse Reactions: strawberry Allergy (Verified 03/20/18 20:02) clorox Allergy (Uncoded 03/01/17 00:40) Home Medications: Medication Instructions Recorded Methadone 47mg 47 mg PO DAILY 05/17/17 Medical Decision Making - Diagnostics Imaging Results: Testicular ultrasound: Images reviewed by myself and discussed with radiologist , negative for torsion, mass or abnormality. Impression normal testicular ultrasound ED Course/Re-evaluation: I reviewed the patient's discharge summary from [facility]. "Please see admission history and physical from March [address] Jaimes's consultation, the patient is a 27-year-old male who with a history of substance abuse as well as Hodgkin's lymphoma who presented with acute intractable right testicular pain. The patient was admitted and his workup was essentially negative including chlamydia and gonorrhea studies, urinalysis, and abdominal CT and and 2 ultrasounds of the testicles. Urology felt his exam was benign. He was treated for epididymitis with doses of ceftriaxone as well as doxycycline and at this point is feeling much better. He will be discharged home on his current outpatient medications. The patient will follow-up in [place] for his methadone maintenance " The patient had an IV established. He received 50 mcg of fentanyl. The patient did undergo a testicular ultrasound which continues to demonstrate no evidence of obvious pathology. The patient is having functional testicular pain. He has been treated several times for epididymitis in reviewing his most recent hospitalization. I do not feel that further antibiotic therapy is indicated. He had a negative gonorrhea and Chlamydia test performed within the past week. Patient will be discharged from our emergency department. He is advised [facility]. Differential Diagnosis: Differential diagnosis considered includes testicular torsion, epididymitis, functional testicular pain, urinary tract infection - Data Points Medications Given: Discontinued Medications Fentanyl (Sublimaze) 50 mcg IVP EDNOW ONE Stop: 03/20/18 20:19 Last Admin: 03/20/18 20:23 Dose: 50 mcg Departure - Departure Disposition: Home, Routine, Self-Care Clinical Impression: Chronic pain in testicle Condition: Good Instructions: Testicle Pain (ED) Additional Instructions: 1. Continue your regular methadone. 2. Follow up with [facility] to establish local primary care. 3. Your testicular ultrasound demonstrates no evidence of acute pathology. I recommend following up with the urologist who saw you in [place] as scheduled.
[2018-03-20] MEDS ORDERED: fentaNYL 100 MCG/2 ML INJ IVP ONE (20:18)
[2018-03-20 21:18] VITALS: BP 122/74
== END 2018-03-20 21:17 | disposition home or self-care (01) ==
DX: N50.811 Right testicular pain (principal); G89.29 Other chronic pain; Z87.891 Personal history of nicotine dependence
CPT/HCPCS: 96374; J3010